=== PATIENT | female | born 1955 | race Asian ===

== ENCOUNTER 2020-11-19 10:46 | Inpatient (IN) ==
[2020-11-19] MEDS ORDERED: Ipratropium/Albuterol Neb 3 ML IH ONE (10:57)
[2020-11-19 11:20] LABS: Basophils % 0.2 %; Eosinophils # 0.4 K/mcL (0.0-0.6); Eosinophils % 4.6 %; Hematocrit 24.1 % (35.3-44.9); Hemoglobin 7.5 g/dL (11.5-15.4); Immature Granulocytes % 0.4 % (0-4); Lymphocytes # 0.6 K/mcL (0.6-4.6); Lymphocytes % 6.9 %; Mean Corpuscular HGB Conc 31.1 g/dL (31.6-35.5); Mean Corpuscular Hemoglobin 28.3 pg (28.0-33.3); Mean Corpuscular Volume 90.9 fL (83.0-100.0); Mean Platelet Volume 10.1 fL (9.4-12.4); Monocytes # 0.6 K/mcL (0.0-1.3); Monocytes % 7.7 %; Neutrophils # 6.5 K/mcL (1.6-8.9); Nucleated Red Blood Cells 0.2 /100 WBC (0); Platelet Count 196 K/mcL (140-400); Red Blood Count 2.65 M/mcL (3.82-4.97); Red Cell Distribution Width 13.7 % (11.5-14.5); Segmented Neutrophils % 80.2 %; White Blood Count 8.1 K/mcL (4.3-11.1)
[2020-11-19 11:51] LABS: Prothrombin Time 184.5 Seconds (9.4-12.1)
[2020-11-19 11:52] LABS: BUN/Creatinine Ratio 22 (6-26); Blood Urea Nitrogen 11 mg/dL (8-23); Calcium 8.1 mg/dL (8.6-10.3); Carbon Dioxide 24 mEq/L (23-29); Chloride 101 mEq/L (98-107); Glucose 214 mg/dL (70-105); INR 17.3; Osmolality,Calculated 282 (280-300); Phosphorous 3.1 mg/dL (2.7-4.5); Potassium 3.6 mEq/L (3.5-5.1); Sodium 133 mEq/L (136-145); Troponin I < 0.03 ng/mL (< 0.04); eGFR For African Americans > 60 (> 60); eGFR For Non-African Americans > 60 (> 60)
[2020-11-19 12:05] LABS: Thyroid Stimulating Hormone 3.944 mcIU/mL (0.340-5.600)
[2020-11-19] MEDS ORDERED: *HR* Phytonadione 5 MG TABLET PO ONE (14:00)
[2020-11-19 15:21] LABS: Bilirubin,Urine Negative (Negative); Blood,Urine Trace (Negative); Clarity,Urine Clear (Clear); Color,Urine Yellow (Yellow); Glucose,Urine (UA) Normal (Normal); Ketones,Urine Negative (Negative); Leukocyte Esterase,Urine Negative (Negative); Mucus,Urine Few per lpf (None-Few); Nitrite,Urine Negative (Negative); Protein,Urine Trace mg/dL (Neg-Trace); Specific Gravity,Urine 1.024 (1.010-1.025); Squamous Epithelial Cell,Urine Few per hpf (None-Few); Urobilinogen,Urine Normal (Normal)
[2020-11-19 17:42] LABS: Influenza A PCR Negative (Negative); Influenza B PCR Negative (Negative); Resp. Syncytial Virus PCR Negative (Negative)
[2020-11-19 17:47] LABS: SARS-CoV-2 by PCR (In House) Negative (Negative)
[2020-11-20] MEDS ORDERED: Naloxone 0.4 MG/ML INJ IVP PRN ×2 (01:25→03:11)
[2020-11-20 01:48] LABS: Basophils % 0.2 %; Eosinophils # 0.7 K/mcL (0.0-0.6); Eosinophils % 5.2 %; Hematocrit 24.8 % (35.3-44.9); Hemoglobin 7.6 g/dL (11.5-15.4); Immature Granulocytes % 0.5 % (0-4); Lymphocytes # 0.5 K/mcL (0.6-4.6); Lymphocytes % 3.5 %; Mean Corpuscular HGB Conc 30.6 g/dL (31.6-35.5); Mean Corpuscular Hemoglobin 27.9 pg (28.0-33.3); Mean Corpuscular Volume 91.2 fL (83.0-100.0); Mean Platelet Volume 9.9 fL (9.4-12.4); Monocytes # 0.8 K/mcL (0.0-1.3); Monocytes % 5.9 %; Neutrophils # 11.1 K/mcL (1.6-8.9); Platelet Count 194 K/mcL (140-400); Red Blood Count 2.72 M/mcL (3.82-4.97); Red Cell Distribution Width 13.9 % (11.5-14.5); Segmented Neutrophils % 84.7 %
[2020-11-20 01:50] LABS: White Blood Count 13.1 K/mcL (4.3-11.1)
[2020-11-20] MEDS ORDERED: Furosemide 40 MG/4 ML VIAL IVP ONE (01:59)
[2020-11-20] MEDS ORDERED: Furosemide 40 MG/4 ML VIAL ONE (02:08)
[2020-11-20 02:17] LABS: Activated Partial Thrombo Time 47.7 Seconds (26.0-36.0)
[2020-11-20 02:24] LABS: INR 15.4; Prothrombin Time 164.5 Seconds (9.4-12.1)
[2020-11-20] MEDS ORDERED: Ondansetron 4 MG/2 ML VIAL IVP PRN (03:11)
[2020-11-20] MEDS ORDERED: D5% in Water 1,000 ML IVC PRN (04:32)
[2020-11-20] MEDS ORDERED: Dextrose Gel 15 GM/37.5 ML TUBE PO PRN ×2 (04:32)
[2020-11-20] MEDS ORDERED: *HR* Dextrose 50 % in Water (Vial) 50 ML VIAL IVP PRN (04:32)
[2020-11-20 05:09] LABS: BUN/Creatinine Ratio 19 (6-26); Blood Urea Nitrogen 10 mg/dL (8-23); Carbon Dioxide 29 mEq/L (23-29); Chloride 102 mEq/L (98-107); Glucose 117 mg/dL (70-105); Osmolality,Calculated 288 (280-300); Potassium 3.3 mEq/L (3.5-5.1); Sodium 139 mEq/L (136-145); eGFR For African Americans > 60 (> 60); eGFR For Non-African Americans > 60 (> 60)
[2020-11-20 05:16] LABS: Procalcitonin 0.16 ng/mL (0.00-0.15)
[2020-11-20] MEDS: Insulin LISPRO 300 UNITS/3 ML VIAL SUBQ SCH ×3 (05:58→17:08)
[2020-11-20 06:03] LABS: INR 3.6; Prothrombin Time 39.9 Seconds (9.4-12.1)
[2020-11-20] MEDS ORDERED: Perflutren Lipid Microsphere 1.3 ML in 0.9 % Sodium Chloride 8.7 ML IVP PRN (06:04)
[2020-11-20 06:55] LABS: % Iron Saturation 4 % (15-50); Iron 15 mcg/dL (50-170); Transferrin 305 mg/dL (203-362)
[2020-11-20 07:13] LABS: Ferritin 26 ng/mL (10-120)
[2020-11-20 07:18] LABS: Folate 21.4 ng/mL (3.0-16.0)
[2020-11-20] MEDS: cefTRIAXone 1,000 MG in Water for inj. (sterile) 10 ML IVP SCH (08:44)
[2020-11-20] MEDS: Acetaminophen 325 MG TABLET PO PRN ×2 (08:44→22:31)
[2020-11-20] MEDS: Azithromycin 250 MG TABLET PO SCH (08:45)
[2020-11-20] MEDS ORDERED: Pantoprazole 40 MG VIAL IVP SCH (09:00)
[2020-11-20] MEDS: Ipratropium/Albuterol Neb 3 ML IH SCH ×3 (09:48→21:30)
[2020-11-20 11:54] LABS: INR 1.8; Prothrombin Time 20.9 Seconds (9.4-12.1)
[2020-11-20] MEDS: *HR* Enoxaparin 40 MG/0.4 ML SYRINGE SQ SCH (17:12)
[2020-11-20 17:37] LABS: Immature Reticulocyte % 27.9 % (11.0-38.0); Retculocyte # 0.09 M/mcL (0.05-0.10); Reticulocyte % 3.4 % (1.6-2.8)
[2020-11-21] MEDS: Insulin LISPRO 300 UNITS/3 ML VIAL SUBQ SCH (00:18)
[2020-11-21] MEDS: Ipratropium/Albuterol Neb 3 ML IH SCH ×2 (03:39→10:49)
[2020-11-21] MEDS: *HR* Enoxaparin 40 MG/0.4 ML SYRINGE SQ SCH (06:10)
[2020-11-21] MEDS ORDERED: Insulin LISPRO 300 UNITS/3 ML VIAL SUBQ SCH ×4 (07:30→21:00)
[2020-11-21] MEDS: cefTRIAXone 1,000 MG in Water for inj. (sterile) 10 ML IVP SCH (08:00)
[2020-11-21] MEDS: Azithromycin 250 MG TABLET PO SCH (08:01)
[2020-11-21] MEDS: Acetaminophen 325 MG TABLET PO PRN (08:13)
[2020-11-21] MEDS ORDERED: *HR* Amiodarone 200 MG TABLET PO SCH (10:05)
[2020-11-21] MEDS ORDERED: Ondansetron 4 MG/2 ML VIAL IVP PRN (10:05)
[2020-11-21] MEDS ORDERED: Acetaminophen 325 MG TABLET PO PRN (10:05)
[2020-11-21 11:04] LABS: Basophils % 0.1 %; Eosinophils # 0.1 K/mcL (0.0-0.6); Eosinophils % 0.3 %; Hematocrit 28.5 % (35.3-44.9); Hemoglobin 8.8 g/dL (11.5-15.4); Immature Granulocytes % 0.5 % (0-4); Lymphocytes # 0.4 K/mcL (0.6-4.6); Lymphocytes % 2.5 %; Mean Corpuscular HGB Conc 30.9 g/dL (31.6-35.5); Mean Corpuscular Hemoglobin 27.9 pg (28.0-33.3); Mean Corpuscular Volume 90.5 fL (83.0-100.0); Mean Platelet Volume 9.8 fL (9.4-12.4); Monocytes # 0.7 K/mcL (0.0-1.3); Monocytes % 4.7 %; Neutrophils # 13.8 K/mcL (1.6-8.9); Platelet Count 268 K/mcL (140-400); Red Blood Count 3.15 M/mcL (3.82-4.97); Red Cell Distribution Width 14.1 % (11.5-14.5); Segmented Neutrophils % 91.9 %; White Blood Count 15.1 K/mcL (4.3-11.1)
[2020-11-21 11:12] LABS: INR 1.6; Prothrombin Time 18.3 Seconds (9.4-12.1)
[2020-11-21 11:24] LABS: BUN/Creatinine Ratio 25 (6-26); Blood Urea Nitrogen 10 mg/dL (8-23); Calcium 8.4 mg/dL (8.6-10.3); Carbon Dioxide 26 mEq/L (23-29); Chloride 101 mEq/L (98-107); Glucose 204 mg/dL (70-105); Magnesium 2.1 mg/dL (1.6-2.6); Osmolality,Calculated 287 (280-300); Phosphorous 2.8 mg/dL (2.7-4.5); Potassium 3.7 mEq/L (3.5-5.1); Sodium 136 mEq/L (136-145); eGFR For African Americans > 60 (> 60); eGFR For Non-African Americans > 60 (> 60)
[2020-11-21 12:17] VITALS: TEMP 97.3
[2020-11-21 15:16] VITALS: PULSE 75; O2SAT 92
[2020-11-21 15:17] VITALS: BP 99/59
[2020-11-21] MEDS ORDERED: Ipratropium/Albuterol Neb 3 ML IH SCH (16:00)
[2020-11-21] MEDS ORDERED: *HR* Enoxaparin 40 MG/0.4 ML SYRINGE SQ SCH (18:00)
[2020-11-21] MEDS ORDERED: Gabapentin 300 MG CAPSULE PO SCH (21:00)
[2020-11-22] MEDS ORDERED: cefTRIAXone 1,000 MG in Water for inj. (sterile) 10 ML IVP SCH (09:00)
[2020-11-22] MEDS ORDERED: Azithromycin 250 MG TABLET PO SCH (09:00)
== END 2020-11-21 14:22 | disposition short-term general hospital (02) ==
LOC: ICNU 10:46 → EMEROOARM 10:46 → SUATTDRO 11-20 01:25 → ICNU 11-20 01:48
PROVIDERS: ADMIT Student in an Organized Health Care Education/Training Program; ATTEND Internal Medicine